=== PATIENT | female | born 1945 | race Caucasian/White ===

== ENCOUNTER 2016-08-19 09:39 | Inpatient (IN) | payer MEDICARE, OTHER ==
[~2016-08-19] VITALS: Ht 162.6 cm; Wt 108.4 kg
--- NOTE | ~2016-08-19 | OR ---
PATIENT'S NAME: SHARA IBARRA [facility] AGE: 70 Y [address] ROOM: [address] [address] LOCATION: [id number] ADMIT DATE: 08/19/2016 OR/Procedure Report DISCHARGE DATE: 08/22/2016 FAMILY PHYSICIAN: Kaley Cobos MD ATTENDING PHYSICIAN: ALLEN AVALOS SURGEON: Allen Avalos DO VEGETABLE TRIMMER: DATE OF PROCEDURE: 08/19/2016 Corrected per physician 08/22/16 AO PREOPERATIVE DIAGNOSIS: Hardware cut out, left hip status post Intertan fixation of left intertrochanteric fracture. SECONDARY DIAGNOSIS: Osteoporosis. PROCEDURE: Hardware removal of left Intertan cephalomedullary jayden, left hip. ANESTHESIA: General endotracheal plus local 30 mL of Marcaine 0.5% with epi. ESTIMATED BLOOD LOSS: Less than 50 mL. ANTIBIOTICS: 3 grams of IV Ancef. INDICATIONS: Ms. Shara Ibarra is a pleasant 70-year-old female who suffers from morbid obesity and osteoporosis, had an unfortunate fall with comminuted intertrochanteric fracture. She had fixation. Fracture had gone on to heal. We checked and confirmed with CT. She has some cut out of the lag screw. It was approaching the articular surface. She had no symptoms. We discussed after careful observation, the risks and benefits of leaving at the end that it could cut out further into the joint space in an approximately 1-year jaime after fixation. She elected to have it removed upon my advice. She understands the risks, benefits, and potential complications to include, re-fracture that could result in starting all over with new surgeries potential for infection, DVT, pulmonary embolism, and even . Due to her large body habitus, we will keep her toe-touch weightbearing to protect her as removing the nail and cephalomedullary lag and compression screw can lead to a stress riser and cause her to fracture. She understands this. We will keep her toe-touch weightbearing and progress as discussed. She understands one fall or one of that can occur in fracture of the femoral neck or intertrochanteric or subtrochanteric region. She had been well informed of the risk of DVT infection, neurovascular injuries, potential complications from anesthesia including anaphylactic reaction. DESCRIPTION OF PROCEDURE: Having been well informed, the patient was brought back to operative suite, placed on the [place] table in supine position with well- padded bony extremities. She was placed under general endotracheal anesthesia. PATIENT'S NAME: SHARA IBARRA [facility] AGE: 70 Y [address] ROOM: [address] [address] LOCATION: [facility] ADMIT DATE: 08/19/2016 OR/Procedure Report DISCHARGE DATE: 08/22/2016 FAMILY PHYSICIAN: Kaley Cobos MD ATTENDING PHYSICIAN: ALLEN AVALOS Time-out confirmed the operative site. Preop antibiotics were performed with the 3 g IV Ancef. Using the old incision, a guidewire was placed to cephalomedullary jayden and the bone reamed away allowing me to release the locked lag screw. Once this was released, we were able to place a cannulated guidewire into the lag and compression screw and remove them. We then placed an extractor into the jayden over a ball-tipped guidewire in a reverse direction and I was able to remove it very easily. We then placed the femur through a range of motion under live C-arm. Confirmed it was stable without new fracture and a bony callus formation. Hardware was all removed without complications. The two incision sites have been irrigated. The distal locked screw had been removed prior at attempt for dynamization. The tensor was then closed in a stnxef-ax-pmaly fashion with #1 Vicryl. Subcutaneous tissue closed with Monocryl in a simple buried followed by bell. Sterile dressings form Xeroform 4 x 4, and sterile bandage. Sponge and needle counts were reported correct x3. COMPLICATIONS: None. We will keep her toe-touch weightbearing with the use of a walker and fall precautions. She will continue her osteoporosis treatment on Forteo. ALLEN AVALOS DO PH/modl /[id number] Corrected per physician 08/22/16 AO d: 08/19/16 2106 t: 08/31/16 1304, OPERATIVE SUMMARY
--- NOTE | ~2016-08-19 | DS ---
PATIENT'S NAME: SYED IBARRA [facility] AGE: 70 Y [address] ROOM: [address] [address] LOCATION: [facility] ADMIT DATE: 08/19/2016 Discharge Summary DISCHARGE DATE: 08/22/2016 FAMILY PHYSICIAN: Kaley Cobso MD ATTENDING PHYSICIAN: Allen Avalos FINAL DIAGNOSIS: Hardware irritation of left hip. HOSPITAL COURSE: On 08/19, I took her back to the OR for hardware removal of the cephalomedullary nail of left hip. The final diagnoses also include osteopenia. Hardware was removed without complication. The patient's stay required 2 days, then she can go to rehab afterwards without complications. CONSULTATIONS: Consults were obtained through the Hospitalists for medical management. ALLEN AVALOS DO PH/modl /[id number] d: 09/11/16 1853 t: 09/18/16 1122, DISCHARGE SUMMARY
[~2016-08-19 09:39] MED LIST: ADVIL200 MG PO; ALOE VERA25 MG PO; APPLE CIDER VI300 MG PO; ASPIRIN325 MG PO; CALCIUM 600 +1 EAC7 PO; CENTRUM SILVER1 EAC1 PO; CINNAMON PLUS1 EACH PO; COUMADIN ** IA5 MG PO; COUMADIN**IA 06/5 MG PO; CRESTOR10 MG PO; ENDOCET 5-3251 EACH PO; FORTEO 6001 PEN/600 SUB-Q; FOSAMAX70 MG PO; HUMALOG100 UNIT/1 SUB-Q; INVOKANA300 MG PO; K-TAB ER20 MEQ PO; LANTUS (IN100 UNIT/M SUB-Q; LOVENOX 4040 MG/0.4 SUB-Q; METOPROLOL SUCC50 MG PO; OSCAL + D500 MG PO; PRESERVISION L1 EACH PO; VALSARTAN-HCTZ1 EACH PO
[2016-08-19 11:06] LABS: PROTIME 10.4 SECONDS (9.6-11.1)
--- NOTE | 2016-08-19 17:13 | NUR ---
Significant Event: Received from pacu @ 1600. Will have 1st hourly vs due @ 1830. Red drainage visible under tegaderm, has been reinforced with ABD and microfoam tape. CSM WNL. Had a general. Accuchecks ACHS. Has voided on bedpan. Capo hose/foot pumps on.Family @ bedside. tegaderm Follow up:
--- NOTE | 2016-08-20 04:17 | NUR ---
POD#1 REMOVAL HARDWARE LEFT HIP W/TTWB TO LLE, INCISION X 2 UPPER WITH SUTURES/4X4/ABD AND TAPE WAS CHANGED AT SHIFT CHANGE DUE TO BLEEDING AND IS NOW CDI, LOWER 4X4 WITH TEGADERM ONLY LOWER MARKED AT THIS TIME. GOOD CSMS, UP WITH 2 ASSIST/FWW/GAIT BELT TO BATHROOM THIS AM AND DID WELL. TOLERATING PAIN WELL WITH NORCO LD@0230 AND WILL REASSESS BEFORE SHIFT CHANGE. PARADISE MIDLINE & RIGHT WRIST PIV BOTH SALINE LOCKED. LMB 08/19 BEFORE SURGERY, GOOD PO INTAKE/OUTPUT AND TOLERATING A REGULAR ADA DIET. BLOOD SUGAR @2100 WAS 212 AND RECEIVED SS INSULIN 2UNITS ALONG WITH LONG ACTING INSULIN. PATIENT HAS 2 MEDICATIONS THAT ARE NOT FORMULARY AND HER DAUGHTER WILL BE BRINGING THOSE TODAY AND NEED TO BE WALKED TO PHARMACY WHEN THEY ARRIVE. VS WNL, HAS A CPAP BUT NOT HERE AND WAS PLACED ON O2 PER NC FOR RESP SUPPORT OVERNIGHT. PLAN TO GO BACK HOME ON DISCHARGE.
[2016-08-20 05:37] LABS: PROTIME 10.7 SECONDS (9.6-11.1)
--- NOTE | 2016-08-20 10:30 | NUR ---
Introduced self/role to patient, and their daughter. They are thinking that placement might be needed. She were at [facility] following her surgery this past summer and would want to go there. Talked about current OBS status and will have to check the chart for inpatient status. Explained how OBS and Inpatient changes payer sources for SNF. 1115 Called Nancy with UR, I see an inpatient order starting 08/19. She will come take a look and let me know. 1200 Nancy called back and she does meet inpatient criteria starting yesterday. 1205 Followed up with patient and her family. Will proceed with Helen's referral. Called and they do have a bed. Would be ready Thursday if she gets her 3 nights for Medicare. [address] [facility].
--- NOTE | 2016-08-20 17:55 | NUR ---
Pt alert and oriented. She has been up recliner most of shift. Ambulates to bathroom with one assist now. Pt slow but steady. Gets somewhat SOB with the activity. She is on ROom air. Geff po x2, last at 1620 for pain rated at 3-4. Ice to hip most of shift. Hip dressin dry and intact. Dressing lower thigh has shadow drainage, unchanged. Pt voids well. IS use at 2250. CSM WNL. Has 3-4 plus lower extremity edema. Forteo in refrigerator. Pt weaned off O2 this morn. Plan to go to swingbed soon. Saline locks to left midline and Rt wrist.
--- NOTE | 2016-08-21 03:43 | NUR ---
POD#2 LEFT HIP HARDWARE REMOVAL, INCISION WITH DSG X [address], BOTTOM DSG MARKED WITH OLD DRAINAGE, UP WITH 1 ASSIST/FWW/GAIT BELT, PARADISE MIDLINE & RIGHT WRIST PIV BOTH SALINE LOCKED, EDEMA TO BLE 1-3+ DEPENDENT PITTING, VS WNL, O2 OVER NIGHT PATIENT DOES NOT HAVE CPAP HERE AT THE HOSPITAL, FSBS @2100 WAS 230 AND RECEIVED 2UNITS SS INSULIN ALONG WITH HS LEVIMIR. GOOD PO INTAKE/OUTPUT, NO BM THIS SHIFT. PAIN CONTROLLED WITH NORCO LD@2130 WITH GOOD RESULTS AND WILL REASSESS BEFORE SHIFT CHANGE IN AM. PLAN TO DC TO EITHER SNF OR SWING BED WHEN CLEARED FOR DISCHARGE, PATIENT STATES MAY TO GO [facility].
[2016-08-21 05:03] LABS: PROTIME 10.5 SECONDS (9.6-11.1)
--- NOTE | 2016-08-21 14:00 | NUR ---
Alyssa from [facility]'s called and they will take patient tomorrow at 1100. She just finished doing paperwork with them. Called Rogelio on 3N, he is aware of dismissal tomorrow and let the doctor know.
--- NOTE | 2016-08-21 16:35 | NUR ---
patient doing well. ambulated to bathroom with one assist. ttwb to left hip. left hip/thigh dressing d/i. mepilex. csm adequate. slight edema noted to feet. sob with exertion. o2 sats above 90% on room air. to [facility] tomorrow for skilled care. norco last at 0900. refused pain meds this afternoon. vss.up with one assist to bathroom.
--- NOTE | 2016-08-21 20:40 | NUR ---
PT REFUSED HER CPAP AND WAS PLACED ON 1L NC WITH NO SIGNS OF DISTRESS.
--- NOTE | 2016-08-22 03:21 | NUR ---
Significant Event: PATIENT ALERT AND ORIENTED X 3. VSS. TAKING PO AND VOIDING WITHOUT DIFFICULTY. UP WITH 1 ASSIST - TTWB TO L) LE - MAINTAINS PRETTY WELL - WALKER AND GB FOR TRANSFERS. DENIES PAIN - NO PAIN MEDS GIVEN THIS SHIFT. MEPILEX DRESSING X 2 TO L HIP AND THIGH C/D/I. CSM'S WNL. ICE TO L) HIP AT ALL TIMES. SALINE LOCK PATENT TO RIGHT RA. PLEASANT AND COOPERTIVE WITH CARES. PLANS TRANSFER TO [facility] TODAY AT 11 AM. WEARS 1L O2 WITH SLEEP.
[2016-08-22 06:02] LABS: PROTIME 10.6 SECONDS (9.6-11.1)
--- NOTE | 2016-08-22 06:41 | NUR ---
[id number] Supervised [facility] Buttonhole Marker.
--- NOTE | 2016-08-22 09:40 | NUR ---
Spoke with Nat Grimaldo and charge Maryse - tati good to go at 1100. Faxed orders to [facility] #[phone]. TREE placed in packet. Nurse given number to call for report. 0950 Called back Bill from [facility], he had an error message from his fax on the last page. Verified there were 13 pages sent and manually counted orders and there were 13 pages. He stated that is the amount he received so must have them all.
--- NOTE | 2016-08-22 10:03 | NUR ---
Significant Event: PATIENT ALERT AND ORIENTED X3. MEPILEX DRESSINGS X2 TO L) HIP C/D/I. CSM ASSESSMENTS WNL TO L) LOWER EXTREMITY. UP TO CHAIR AND AMBULATES TO BATHROOM WITH SBA, USE OF WALKER AND GAIT BELT. DENIED PAIN WHEN ASKED. EDEMA TO BILATERAL ANKLES/FEET. ICE TO L) HIP. FOOT PUMPS AND KNEE HIGH JENNIFER HOSE ON. WEARS O2 AT 1L/NC AT NIGHT, OFF DURING THE DAY. ACCUCHECK 97 PRIOR TO BREAKFAST. 100% OF BREAKFAST TAKEN, TAKING FLUIDS WELL. INCENTIVE SPIROMETER ENCOURATED UP TO 1999. HAD BM THIS AM. TTWB L) LOWER EXTREMITY. PLEASANT AND COOPERATIVE WITH CARES. Follow up:
--- NOTE | 2016-08-22 11:11 | NUR ---
D: PATIENT DISMISSED TO [facility], VIA AMBULANCE, ASSISTED TO W/C AND 1 ASSIST, USE OF WALKER/GAIT BELT. ACCOMPANIED BY VAN ATTENDENT. SEE TRANSFER NOTE
== END 2016-08-22 11:12 | DRG 498 ==
LOC: G3N 09:39 → GSDC 09:39 → G3N 15:58 → GSDC 15:59 → G3N 08-22 11:12
PROVIDERS: ADMIT Orthopaedic Surgery
PROC: 0QP704Z Removal of Internal Fixation Device from Left Upper Femur, Open Approach (ICD-10-PCS; principal; 2016-08-19)
DX: T84.498A Other mechanical complication of other internal orthopedic devices, implants and grafts, initial encounter (principal); Z68.41 Body mass index [BMI] 40.0-44.9, adult; E11.65 Type 2 diabetes mellitus with hyperglycemia; I11.0 Hypertensive heart disease with heart failure; I50.30 Unspecified diastolic (congestive) heart failure; E66.01 Morbid (severe) obesity due to excess calories; M81.0 Age-related osteoporosis without current pathological fracture; E11.319 Type 2 diabetes mellitus with unspecified diabetic retinopathy without macular edema; Z79.4 Long term (current) use of insulin; E78.5 Hyperlipidemia, unspecified; I25.10 Atherosclerotic heart disease of native coronary artery without angina pectoris; G47.33 Obstructive sleep apnea (adult) (pediatric); Z79.01 Long term (current) use of anticoagulants; Z96.652 Presence of left artificial knee joint; Z86.718 Personal history of other venous thrombosis and embolism; R53.82 Chronic fatigue, unspecified
CPT/HCPCS: C1713; C1751; J0690; J1650; J2001; J3010; J7030; J7040